=== PATIENT | female | born 1945 | race Caucasian/White ===

== ENCOUNTER 2021-04-26 12:53 | Inpatient (IN) | payer MEDICARE, OTHER ==
[~2021-04-26] VITALS: Ht 170.2 cm; Wt 128.9 kg
[~2021-04-26 12:53] MED LIST: CHOL2000 PO; PRAV40TA2 PO
[2021-04-26] MEDS ORDERED: ACETAMINOPHEN 500 MG TABLET ONE (13:43)
--- NOTE | 2021-04-26 13:45 | NUR ---
PT BACK FROM TRIAGE, PLACED ON 4L NC. PT SPO2 INCREASED FROM 88%RA TO 96%. PT STATES SHE HAS BEEN FEELING LOW ENERGY, SOB & DECREASED APPETITIE X SUNDAY. PT STATES A LOT OF PPL AT HER RESTORATION HAVE BEEN DX C COVID. PT IS UNVACCINATED. PLACED ON ALL MONITORS. B/C X 2 & ALL LABS DRAWN & SENT. MEDS PER OCT. CALL LIGHT INREACH. WILL CTM.
[2021-04-26 13:48] LABS: BASOPHILS % (AUTO) 0 % (0-1); EOSINOPHILS % (AUTO) 0 % (1-7); LYMPHOCYTES % (AUTO) 17 % (22-44); MEAN CORPUSCULAR HEMOGLOBIN 30.1 pg (27.0-34.8); MEAN CORPUSCULAR HGB CONC 34.2 g/dL (32.4-35.8); MEAN PLATELET VOLUME 9.5 fL (7.4-10.4); MONOCYTES % (AUTO) 15 % (2-9); NEUTROPHILS % (AUTO) 68 % (42-75); PLATELET COUNT 147 x10^3/uL (130-400); RED BLOOD COUNT 4.81 x10^6/uL (3.82-5.3); RED CELL DISTRIBUTION WIDTH 12.5 % (9.6-15.2)
[2021-04-26 13:58] LABS: ALANINE AMINOTRANSFERASE 29 U/L (12-78); ALBUMIN 2.9 g/dL (3.4-5.0); ANION GAP 7 mmol/L (5-15); CALCIUM 7.8 mg/dL (8.5-10.1); CHLORIDE 101 mmol/L (98-107); CREATININE 0.96 mg/dL (0.55-1.02)
[2021-04-26] MEDS ORDERED: ACETAMINOPHEN 500 MG TABLET PO ONE (14:00)
[2021-04-26 14:05] LABS: ALKALINE PHOSPHATASE 67 U/L (45-117); BILIRUBIN,TOTAL 0.7 mg/dL (0.2-1.0); TROPONIN I < 0.015 ng/mL (0.000-0.045)
[2021-04-26] MEDS ORDERED: DEXAMETHASONE 4 MG/ML, 1ML ONE (14:55)
[2021-04-26] MEDS ORDERED: NS + 40MEQ KCL 1,000 ML IV ONE (14:56)
[2021-04-26] MEDS ORDERED: AZITHROMYCIN 500 MG in SODIUM CHLORIDE 0.9% 250 ML IV ONE (15:00)
[2021-04-26] MEDS ORDERED: NS + 40MEQ KCL 1,000 ML IV SCH (15:00)
[2021-04-26] MEDS ORDERED: DEXAMETHASONE 4 MG/ML, 1ML IV ONE (15:00)
[2021-04-26] MEDS ORDERED: SODIUM CHLORIDE FLUSH 10ML SYR IVF PRN (15:00)
[2021-04-26] MEDS ORDERED: CEFTRIAXONE 1,000 MG in DEXTROSE 5% 50 ML IVPB ONE (15:00)
[2021-04-26 15:09] LABS: D-DIMER (DIC) 0.92 ug/mlFEU (0.00-0.52); PROTIME 10.9 Seconds (9.6-11.5)
--- NOTE | 2021-04-26 15:17 | NUR ---
PT AWARE OF PLAN TO ADMIT. STARTED ON ABX. CALL LIGHT INREACH. WILL CTM.
[2021-04-26] MEDS ORDERED: METHOCARBAMOL 500 MG TABLET PO PRN (15:30)
[2021-04-26] MEDS ORDERED: ONDANSETRON 2MG/ML, 2ML IVPush PRN (15:30)
[2021-04-26] MEDS ORDERED: REMDESIVIR 200 MG in SODIUM CHLORIDE 0.9% 100 ML IVPB ONE (15:30)
[2021-04-26] MEDS ORDERED: IBUPROFEN 600 MG TABLET PO PRN (15:30)
[2021-04-26] MEDS ORDERED: ACETAMINOPHEN 325 MG TABLET PO PRN (15:30)
--- NOTE | 2021-04-26 16:51 | NUR ---
pt sleeping. rr even non labored. remains on 3l nc. vss.
[2021-04-26] MEDS: POTASSIUM CHLORIDE 20 MEQ TAB.ER.PRT PO SCH (18:00)
[2021-04-26] MEDS ORDERED: ENOXAPARIN 40 MG/0.4 ML ONE (18:42)
[2021-04-26] MEDS ORDERED: POTASSIUM CHLORIDE 20 MEQ TAB.ER.PRT ONE (18:42)
[2021-04-26] MEDS ORDERED: ASCORBIC ACID 500 MG TABLET ONE (18:42)
[2021-04-26] MEDS: ASCORBIC ACID 500 MG TABLET PO SCH (18:46)
[2021-04-26] MEDS: ENOXAPARIN 40 MG/0.4 ML SQ SCH (18:46)
[2021-04-26 19:19] VITALS: BP 129/71
[2021-04-26] MEDS: PRAVASTATIN 40 MG TABLET PO SCH (20:01)
[2021-04-26] MEDS: GUAIFENESIN ER 600 MG TABLET PO SCH (20:01)
[2021-04-26] MEDS ORDERED: MELATONIN 5 MG TABLET PO PRN (21:00)
[2021-04-26] MEDS ORDERED: TRAZODONE 50MG TABLET PO PRN (21:00)
[2021-04-27 00:35] VITALS: BP 134/68
[2021-04-27] MEDS: ENOXAPARIN 40 MG/0.4 ML SQ SCH ×2 (05:07→18:41)
[2021-04-27 06:00] LABS: ALANINE AMINOTRANSFERASE 27 U/L (12-78); ALBUMIN 2.6 g/dL (3.4-5.0); ANION GAP 7 mmol/L (5-15); CALCIUM 7.6 mg/dL (8.5-10.1); CHLORIDE 108 mmol/L (98-107); CREATININE 0.64 mg/dL (0.55-1.02)
[2021-04-27] MEDS ORDERED: OMNIPAQUE 350 MG/ML, 100ML BOTTLE ONE (06:04)
[2021-04-27 06:06] LABS: ALKALINE PHOSPHATASE 58 U/L (45-117); BILIRUBIN,TOTAL 0.5 mg/dL (0.2-1.0); TOTAL PROTEIN 6.3 g/dL (6.4-8.2)
[2021-04-27 09:25] VITALS: BP 139/73
[2021-04-27] MEDS: GUAIFENESIN ER 600 MG TABLET PO SCH ×2 (09:57→21:48)
[2021-04-27] MEDS: CHOLECALCIFEROL 5,000u TAB PO SCH (09:57)
[2021-04-27] MEDS: POTASSIUM CHLORIDE 20 MEQ TAB.ER.PRT PO SCH ×3 (09:57→18:42)
[2021-04-27] MEDS: ASCORBIC ACID 500 MG TABLET PO SCH ×2 (09:57→18:41)
[2021-04-27] MEDS: DEXAMETHASONE 4 MG/ML, 1ML IVPush SCH (09:57)
[2021-04-27] MEDS: ZINC SULFATE 220 MG CAPSULE PO SCH (09:57)
[2021-04-27 14:00] VITALS: BP 123/70
[2021-04-27] MEDS: REMDESIVIR 100 MG in SODIUM CHLORIDE 0.9% 100 ML IVPB SCH (18:42)
[2021-04-27 20:17] VITALS: BP 117/70
[2021-04-27] MEDS: PRAVASTATIN 40 MG TABLET PO SCH (21:48)
[2021-04-28 01:28] VITALS: BP 109/68
[2021-04-28] MEDS: ENOXAPARIN 40 MG/0.4 ML SQ SCH ×2 (05:12→17:14)
[2021-04-28 05:54] LABS: CHLORIDE 112 mmol/L (98-107)
[2021-04-28 06:28] LABS: ALANINE AMINOTRANSFERASE 29 U/L (12-78); ALBUMIN 2.3 g/dL (3.4-5.0); ALKALINE PHOSPHATASE 56 U/L (45-117); ANION GAP 5 mmol/L (5-15); BILIRUBIN,TOTAL 0.4 mg/dL (0.2-1.0); CALCIUM 7.9 mg/dL (8.5-10.1); CREATININE 0.73 mg/dL (0.55-1.02)
[2021-04-28 07:52] VITALS: BP 111/68
[2021-04-28] MEDS: POTASSIUM CHLORIDE 20 MEQ TAB.ER.PRT PO SCH ×4 (08:00→17:14)
[2021-04-28] MEDS: ASCORBIC ACID 500 MG TABLET PO SCH ×2 (08:23→17:14)
[2021-04-28] MEDS: DEXAMETHASONE 4 MG/ML, 1ML IVPush SCH (08:23)
[2021-04-28] MEDS: ZINC SULFATE 220 MG CAPSULE PO SCH (08:23)
[2021-04-28] MEDS: GUAIFENESIN ER 600 MG TABLET PO SCH ×2 (08:23→21:31)
[2021-04-28] MEDS: CHOLECALCIFEROL 5,000u TAB PO SCH (08:23)
[2021-04-28 12:24] VITALS: BP 116/65
[2021-04-28] MEDS: FUROSEMIDE 20 MG/2 ML IV SCH (17:14)
[2021-04-28] MEDS: REMDESIVIR 100 MG in SODIUM CHLORIDE 0.9% 100 ML IVPB SCH (17:14)
[2021-04-28 19:04] VITALS: BP 117/71
[2021-04-28] MEDS: PRAVASTATIN 40 MG TABLET PO SCH (21:31)
[2021-04-29 01:42] VITALS: BP 147/77
[2021-04-29] MEDS: ENOXAPARIN 40 MG/0.4 ML SQ SCH ×2 (05:33→17:36)
[2021-04-29 05:49] LABS: CHLORIDE 106 mmol/L (98-107)
[2021-04-29 05:59] LABS: ALANINE AMINOTRANSFERASE 32 U/L (12-78); ALBUMIN 2.5 g/dL (3.4-5.0); ALKALINE PHOSPHATASE 59 U/L (45-117); ANION GAP 8 mmol/L (5-15); BILIRUBIN,TOTAL 0.6 mg/dL (0.2-1.0); CALCIUM 8.2 mg/dL (8.5-10.1); CREATININE 0.77 mg/dL (0.55-1.02); TOTAL PROTEIN 6.4 g/dL (6.4-8.2)
[2021-04-29] MEDS: POTASSIUM CHLORIDE 20 MEQ TAB.ER.PRT PO SCH ×4 (08:00→21:46)
[2021-04-29 08:22] VITALS: BP 131/72
[2021-04-29] MEDS: ASCORBIC ACID 500 MG TABLET PO SCH ×2 (10:16→17:36)
[2021-04-29] MEDS: FUROSEMIDE 20 MG/2 ML IV SCH ×2 (10:16→17:36)
[2021-04-29] MEDS: ZINC SULFATE 220 MG CAPSULE PO SCH (10:16)
[2021-04-29] MEDS: DEXAMETHASONE 4 MG/ML, 1ML IVPush SCH (10:16)
[2021-04-29] MEDS: CHOLECALCIFEROL 5,000u TAB PO SCH (10:17)
[2021-04-29] MEDS: GUAIFENESIN ER 600 MG TABLET PO SCH ×2 (10:17→21:46)
[2021-04-29] MEDS: [UNRECOGNIZED DRUG - REMARK] MC SCH ×4 (10:30→21:47)
[2021-04-29 14:02] VITALS: BP 117/65
[2021-04-29] MEDS: REMDESIVIR 100 MG in SODIUM CHLORIDE 0.9% 100 ML IVPB SCH (17:36)
[2021-04-29 21:27] VITALS: BP 106/73
[2021-04-29] MEDS: PRAVASTATIN 40 MG TABLET PO SCH (21:47)
[2021-04-30] MEDS: [UNRECOGNIZED DRUG - REMARK] MC SCH ×4 (01:02→13:23)
[2021-04-30 02:22] VITALS: BP 122/72
[2021-04-30] MEDS: ENOXAPARIN 40 MG/0.4 ML SQ SCH ×2 (05:34→16:54)
[2021-04-30 06:27] LABS: CHLORIDE 104 mmol/L (98-107)
[2021-04-30 06:42] LABS: ANION GAP 12 mmol/L (5-15); CALCIUM 8.7 mg/dL (8.5-10.1)
[2021-04-30 07:58] VITALS: BP 125/66
[2021-04-30 09:50] VITALS: BP 115/75
[2021-04-30] MEDS: GUAIFENESIN ER 600 MG TABLET PO SCH ×2 (09:51→22:17)
[2021-04-30] MEDS: DEXAMETHASONE 4 MG/ML, 1ML IVPush SCH (09:51)
[2021-04-30] MEDS: FUROSEMIDE 20 MG/2 ML IV SCH (09:51)
[2021-04-30] MEDS: CHOLECALCIFEROL 5,000u TAB PO SCH (09:52)
[2021-04-30] MEDS: ZINC SULFATE 220 MG CAPSULE PO SCH (09:52)
[2021-04-30] MEDS: ASCORBIC ACID 500 MG TABLET PO SCH ×2 (09:52→16:54)
[2021-04-30] MEDS: POTASSIUM CHLORIDE 20 MEQ TAB.ER.PRT PO SCH ×2 (09:52→22:17)
[2021-04-30 12:03] VITALS: BP 129/77
[2021-04-30] MEDS: REMDESIVIR 100 MG in SODIUM CHLORIDE 0.9% 100 ML IVPB SCH (16:54)
[2021-04-30 19:22] VITALS: BP 122/64
[2021-04-30] MEDS: PRAVASTATIN 40 MG TABLET PO SCH (22:17)
[2021-05-01 01:26] VITALS: BP 151/68
[2021-05-01] MEDS: ENOXAPARIN 40 MG/0.4 ML SQ SCH ×2 (05:39→17:11)
[2021-05-01 06:10] LABS: ANION GAP 4 mmol/L (5-15); CALCIUM 8.6 mg/dL (8.5-10.1); CHLORIDE 104 mmol/L (98-107)
[2021-05-01 06:13] LABS: CREATININE 0.87 mg/dL (0.55-1.02)
[2021-05-01 07:35] LABS: HCT (SEDRATE) 46.2 % (34.6-47.8)
[2021-05-01 07:50] LABS: D-DIMER 0.43 ug/mlFEU (0.00-0.52)
[2021-05-01 08:00] VITALS: BP 111/74
[2021-05-01] MEDS: DEXAMETHASONE 4 MG/ML, 1ML IVPush SCH (08:34)
[2021-05-01] MEDS: GUAIFENESIN ER 600 MG TABLET PO SCH ×2 (08:35→21:22)
[2021-05-01] MEDS: CHOLECALCIFEROL 5,000u TAB PO SCH (08:35)
[2021-05-01] MEDS: ASCORBIC ACID 500 MG TABLET PO SCH ×2 (08:35→17:11)
[2021-05-01] MEDS: POTASSIUM CHLORIDE 20 MEQ TAB.ER.PRT PO SCH ×2 (08:35→21:21)
[2021-05-01] MEDS: ZINC SULFATE 220 MG CAPSULE PO SCH (08:35)
[2021-05-01] MEDS ORDERED: FUROSEMIDE 20 MG/2 ML IV SCH (09:00)
[2021-05-01] MEDS ORDERED: CEFTRIAXONE 1,000 MG IVPB SCH (10:00)
[2021-05-01] MEDS: CEFTRIAXONE 1,000 MG in DEXTROSE 5% 50 ML IVPB SCH (10:19)
[2021-05-01] MEDS ORDERED: AZITHROMYCIN 500 MG TABLET PO ONE (11:00)
[2021-05-01] MEDS: REMDESIVIR 100 MG in SODIUM CHLORIDE 0.9% 100 ML IVPB SCH (17:11)
[2021-05-01 17:17] VITALS: BP 109/72
[2021-05-01 19:48] VITALS: BP 121/78
[2021-05-01] MEDS: PRAVASTATIN 40 MG TABLET PO SCH (21:21)
[2021-05-02 00:31] VITALS: BP 121/74
[2021-05-02 05:19] LABS: BASOPHILS % (AUTO) 0 % (0-1); EOSINOPHILS % (AUTO) 0 % (1-7); LYMPHOCYTES % (AUTO) 18 % (22-44); MEAN CORPUSCULAR HEMOGLOBIN 30.1 pg (27.0-34.8); MEAN CORPUSCULAR HGB CONC 34.2 g/dL (32.4-35.8); MEAN PLATELET VOLUME 8.6 fL (7.4-10.4); MONOCYTES % (AUTO) 14 % (2-9); NEUTROPHILS % (AUTO) 67 % (42-75); PLATELET COUNT 248 x10^3/uL (130-400); RED BLOOD COUNT 5.14 x10^6/uL (3.82-5.3); RED CELL DISTRIBUTION WIDTH 12.4 % (9.6-15.2)
[2021-05-02] MEDS: ENOXAPARIN 40 MG/0.4 ML SQ SCH ×2 (05:21→17:31)
[2021-05-02 05:32] LABS: ALBUMIN 2.7 g/dL (3.4-5.0); ANION GAP 5 mmol/L (5-15); CALCIUM 8.6 mg/dL (8.5-10.1); CHLORIDE 107 mmol/L (98-107)
[2021-05-02 05:36] LABS: ALANINE AMINOTRANSFERASE 36 U/L (12-78); ALKALINE PHOSPHATASE 60 U/L (45-117); BILIRUBIN,TOTAL 0.7 mg/dL (0.2-1.0); CREATININE 0.82 mg/dL (0.55-1.02); TOTAL PROTEIN 6.7 g/dL (6.4-8.2)
[2021-05-02] MEDS: FUROSEMIDE 20 MG/2 ML IV SCH (09:54)
[2021-05-02] MEDS: DEXAMETHASONE 4 MG/ML, 1ML IVPush SCH (09:54)
[2021-05-02] MEDS: ZINC SULFATE 220 MG CAPSULE PO SCH (09:55)
[2021-05-02] MEDS: ASCORBIC ACID 500 MG TABLET PO SCH ×2 (09:55→17:31)
[2021-05-02] MEDS: AZITHROMYCIN 250 MG TABLET PO SCH (09:55)
[2021-05-02] MEDS: GUAIFENESIN ER 600 MG TABLET PO SCH ×2 (09:55→20:41)
[2021-05-02] MEDS: CHOLECALCIFEROL 5,000u TAB PO SCH (09:55)
[2021-05-02] MEDS: CEFTRIAXONE 1,000 MG in DEXTROSE 5% 50 ML IVPB SCH (09:56)
[2021-05-02 10:07] VITALS: BP 107/71
[2021-05-02 15:13] VITALS: BP 117/80
[2021-05-02] MEDS: REMDESIVIR 100 MG in SODIUM CHLORIDE 0.9% 100 ML IVPB SCH (17:31)
[2021-05-02 19:15] VITALS: BP 108/73
[2021-05-02] MEDS: PRAVASTATIN 40 MG TABLET PO SCH (20:41)
[2021-05-03 00:34] VITALS: BP 127/67
[2021-05-03] MEDS: ENOXAPARIN 40 MG/0.4 ML SQ SCH ×2 (04:22→17:31)
[2021-05-03 05:52] LABS: CHLORIDE 106 mmol/L (98-107)
[2021-05-03 06:02] LABS: ALANINE AMINOTRANSFERASE 31 U/L (12-78); ALBUMIN 2.6 g/dL (3.4-5.0); ALKALINE PHOSPHATASE 58 U/L (45-117); ANION GAP 6 mmol/L (5-15); BILIRUBIN,TOTAL 0.6 mg/dL (0.2-1.0); CALCIUM 8.7 mg/dL (8.5-10.1); CREATININE 0.69 mg/dL (0.55-1.02); TOTAL PROTEIN 6.4 g/dL (6.4-8.2)
[2021-05-03 07:54] VITALS: BP 108/69
[2021-05-03] MEDS: ASCORBIC ACID 500 MG TABLET PO SCH ×2 (08:16→17:31)
[2021-05-03] MEDS: CHOLECALCIFEROL 5,000u TAB PO SCH (08:17)
[2021-05-03] MEDS: ZINC SULFATE 220 MG CAPSULE PO SCH (08:17)
[2021-05-03] MEDS: GUAIFENESIN ER 600 MG TABLET PO SCH ×2 (08:17→20:35)
[2021-05-03] MEDS: FUROSEMIDE 20 MG/2 ML IV SCH (08:17)
[2021-05-03] MEDS: AZITHROMYCIN 250 MG TABLET PO SCH (08:17)
[2021-05-03] MEDS: DEXAMETHASONE 4 MG/ML, 1ML IVPush SCH (08:17)
[2021-05-03] MEDS: CEFTRIAXONE 1,000 MG in DEXTROSE 5% 50 ML IVPB SCH (10:19)
[2021-05-03 12:09] VITALS: BP 109/72
[2021-05-03] MEDS: REMDESIVIR 100 MG in SODIUM CHLORIDE 0.9% 100 ML IVPB SCH (17:31)
[2021-05-03 19:11] VITALS: BP 115/76
[2021-05-03] MEDS: PRAVASTATIN 40 MG TABLET PO SCH (20:35)
[2021-05-04 00:29] VITALS: BP 114/74
[2021-05-04] MEDS: ENOXAPARIN 40 MG/0.4 ML SQ SCH ×2 (04:22→17:11)
[2021-05-04 05:34] LABS: ALBUMIN 2.3 g/dL (3.4-5.0); ANION GAP 8 mmol/L (5-15); CHLORIDE 106 mmol/L (98-107)
[2021-05-04 05:39] LABS: ALANINE AMINOTRANSFERASE 26 U/L (12-78); ALKALINE PHOSPHATASE 57 U/L (45-117); BILIRUBIN,TOTAL 0.5 mg/dL (0.2-1.0); CREATININE 0.68 mg/dL (0.55-1.02); TOTAL PROTEIN 6.4 g/dL (6.4-8.2)
[2021-05-04 08:05] VITALS: BP 116/73
[2021-05-04] MEDS: ASCORBIC ACID 500 MG TABLET PO SCH ×2 (08:47→17:11)
[2021-05-04] MEDS: CHOLECALCIFEROL 5,000u TAB PO SCH (08:48)
[2021-05-04] MEDS: ZINC SULFATE 220 MG CAPSULE PO SCH (08:48)
[2021-05-04] MEDS: DEXAMETHASONE 4 MG/ML, 1ML IVPush SCH (08:48)
[2021-05-04] MEDS: AZITHROMYCIN 250 MG TABLET PO SCH (08:48)
[2021-05-04] MEDS: GUAIFENESIN ER 600 MG TABLET PO SCH ×2 (08:48→20:33)
[2021-05-04] MEDS: FUROSEMIDE 20 MG/2 ML IV SCH (08:49)
[2021-05-04] MEDS: CEFTRIAXONE 1,000 MG in DEXTROSE 5% 50 ML IVPB SCH (10:04)
[2021-05-04 14:14] VITALS: BP 125/81
[2021-05-04] MEDS: REMDESIVIR 100 MG in SODIUM CHLORIDE 0.9% 100 ML IVPB SCH (17:11)
[2021-05-04 19:08] VITALS: BP 116/79
[2021-05-04] MEDS: PRAVASTATIN 40 MG TABLET PO SCH (20:33)
[2021-05-05 00:29] VITALS: BP 127/72
[2021-05-05] MEDS: ENOXAPARIN 40 MG/0.4 ML SQ SCH ×2 (05:19→16:28)
[2021-05-05 08:04] VITALS: BP 108/72
[2021-05-05] MEDS: ZINC SULFATE 220 MG CAPSULE PO SCH (08:55)
[2021-05-05] MEDS: GUAIFENESIN ER 600 MG TABLET PO SCH ×2 (08:55→21:55)
[2021-05-05] MEDS: AZITHROMYCIN 250 MG TABLET PO SCH (08:56)
[2021-05-05] MEDS: ASCORBIC ACID 500 MG TABLET PO SCH ×2 (08:56→16:27)
[2021-05-05] MEDS: FUROSEMIDE 20 MG/2 ML IV SCH (08:56)
[2021-05-05] MEDS: DEXAMETHASONE 4 MG/ML, 1ML IVPush SCH (08:56)
[2021-05-05] MEDS: CHOLECALCIFEROL 5,000u TAB PO SCH (08:56)
[2021-05-05 10:05] LABS: ALBUMIN 2.7 g/dL (3.4-5.0); ANION GAP 7 mmol/L (5-15); CALCIUM 8.7 mg/dL (8.5-10.1); CHLORIDE 104 mmol/L (98-107)
[2021-05-05] MEDS: CEFTRIAXONE 1,000 MG in DEXTROSE 5% 50 ML IVPB SCH (10:09)
[2021-05-05 10:10] LABS: ALANINE AMINOTRANSFERASE 24 U/L (12-78); ALKALINE PHOSPHATASE 62 U/L (45-117); BILIRUBIN,TOTAL 0.6 mg/dL (0.2-1.0); CREATININE 0.86 mg/dL (0.55-1.02); TOTAL PROTEIN 6.9 g/dL (6.4-8.2)
[2021-05-05 13:10] VITALS: BP 119/75
[2021-05-05] MEDS ORDERED: ASCORBIC ACID 250 MG TAB ONE (16:23)
[2021-05-05] MEDS: REMDESIVIR 100 MG in SODIUM CHLORIDE 0.9% 100 ML IVPB SCH (17:55)
[2021-05-05 19:55] VITALS: BP 123/84
[2021-05-05] MEDS: PRAVASTATIN 40 MG TABLET PO SCH (21:55)
[2021-05-06 01:24] VITALS: BP 119/72
[2021-05-06] MEDS: ENOXAPARIN 40 MG/0.4 ML SQ SCH ×2 (05:29→17:24)
[2021-05-06 07:09] VITALS: BP 109/68
[2021-05-06] MEDS: GUAIFENESIN ER 600 MG TABLET PO SCH (08:23)
[2021-05-06] MEDS: CHOLECALCIFEROL 5,000u TAB PO SCH (08:23)
[2021-05-06] MEDS: DEXAMETHASONE 4 MG/ML, 1ML IVPush SCH (08:23)
[2021-05-06] MEDS: ZINC SULFATE 220 MG CAPSULE PO SCH (08:23)
[2021-05-06] MEDS: FUROSEMIDE 20 MG/2 ML IV SCH (08:23)
[2021-05-06] MEDS: ASCORBIC ACID 500 MG TABLET PO SCH ×2 (08:23→17:23)
[2021-05-06] MEDS: CEFTRIAXONE 1,000 MG in DEXTROSE 5% 50 ML IVPB SCH (10:41)
[2021-05-06] MEDS ORDERED: ASCO500T9 PO (13:07)
[2021-05-06] MEDS ORDERED: ZINC220C8 PO (13:07)
[2021-05-06 13:59] VITALS: BP 138/79
== END 2021-05-06 19:00 | disposition home or self-care (01) | DRG 177 ==
LOC: ED 14:48 → EDIP 14:49 → SUATTDRO 14:57 → ED 15:51 → 3N 18:00
PROVIDERS: ADMIT Internal Medicine; ATTEND Hospitalist
PROC: XW033E5 Introduction of Remdesivir Anti-infective into Peripheral Vein, Percutaneous Approach, New Technology Group 5 (ICD-10-PCS; principal; 2021-04-26)
DX: U07.1 COVID-19 (principal); J96.01 Acute respiratory failure with hypoxia; J12.82 Pneumonia due to coronavirus disease 2019; E87.6 Hypokalemia; Z66 Do not resuscitate; Z82.49 Family history of ischemic heart disease and other diseases of the circulatory system; Z80.42 Family history of malignant neoplasm of prostate
CPT/HCPCS: 36415; 71045; 71275; 80048; 80053; 82728; 83036; 83605; 83615; 83735; 84100; 84145; 84484; 85025; 85049; 85379; 85384; 85610; 85651; 85730; 86140; 87040; 93005; 96365; 96366; 96367; 99285; G0378; J0456; J0696; J1100; J1650; Q9967; U0005; J1940; J3480; J7050; U0003